=== PATIENT | female | born 1990 | race Caucasian/White ===

== ENCOUNTER 2017-02-22 21:50 | Emergency (ER) | payer OTHER ==
[2017-02-22] MEDS ORDERED: LORazepam 1 MG TAB ONE (22:51)
--- NOTE | 2017-02-22 22:51 | EDPHY ---
H & P Stated Complaint: anxiety/panic attacks since yesterday - Personal History LMP (Females 10-55): Now Current Tetanus/Diphtheria Vaccine: Yes Current Tetanus Diphtheria and Acellular Pertussis (TDAP): Yes Tetanus Vaccine Date: 2009 - Medical/Surgical History Hx Asthma: No Hx Chronic Respiratory Disease: No Hx Diabetes: No Hx Cardiac Disease: No Hx Renal Disease: No Hx Cirrhosis: No Hx Alcoholism: No Hx HIV/AIDS: No Hx Splenectomy or Spleen Trauma: No Other PMH: anxiety/panic attacks/depression. galbladder removed, migraines - Social History Smoking Status: Never smoked Time Seen by Provider: 02/22/17 22:24 HPI/ROS: Chief Complaint: Anxiety HPI: 26-year-old woman with a history of anxiety impression is presenting complaining of worsening anxiety and panic attacks. She denies feeling suicidal. Has been suicidal in the past but is carmen for safety. Has had increasing stressors at work. Patient does admit to drinking 1 sip of alcohol tonight. She does not feel unsafe. She is here with her boyfriend. No nausea or vomiting. No fevers or chills. Is not hallucinating. No ideas of grandeur. ROS: 10 point Review of Systems is negative except as noted in the HPI. PMH: Anxiety, depression, borderline personality Social History: No smoking, no alcohol, no recreational drug use Family History: non-contributory Physical Exam: Gen: Awake, Alert, No Distress HEENT: Nose: no rhinorrhea Eyes: PERRLA, EOMI Mouth: Moist mucosa Neck: Supple, no JVD Chest: nontender, lungs clear to auscultation Heart: S1, S2 normal, no murmur Abd: Soft, non-tender, no guarding Back: no CVA tenderness, no midline tenderness Ext: no edema, non-tender Skin: no rash Neuro: CN II-XII intact, Sensation grossly intact, Strength 5/5 in bilateral upper and lower extremities (Jose Maria Camara) Constitutional: Initial Vital Signs Temperature (C) 36.6 C 02/22/17 21:53 Heart Rate 75 02/22/17 21:53 Respiratory Rate 16 02/22/17 21:53 Blood Pressure 102/81 H 02/22/17 21:53 O2 Sat (%) 97 02/22/17 21:53 O2 Delivery Mode Room Air Allergies/Adverse Reactions: hydrocodone [Hydrocodone] Allergy (Verified 02/22/17 21:58) Vomiting silver [From Tegaderm AG Mesh] Allergy (Verified 06/30/12 11:34) Rash hydromorphone HCl [From Dilaudid] Adverse Reaction (Mild, Verified 07/02/12 10: 50) Anxiety Home Medications: Medication Instructions Recorded R[place] 02/22/17 Medical Decision Making ED Course/Re-evaluation: On further questioning patient is not feeling any better. She is not want to stay here but is not want to go home with parents or with her boyfriend. When asked why not she states that at home with parents she would be tempted to use a knife or take ibuprofen. Patient now not carmen for safety. She has been placed on a detainer pending mental health evaluation. [id number] patient signed out to Dr. Cornell pending mental health evaluation. ( Jose Maria Camara) I met with the patient and her mother at 7:30 a.m.. She is stable. No requests. Wondering when mental health leaf fat scraper will be back. We discussed that she is mid mental health evaluation. 8:25 a.m. patient has been re-evaluated by mental health. They feel she is safe to be treated as an outpatient. She is given mental health resources for follow-up. (Jatin Cornell) Differential Diagnosis: Apparent borderline personality with symptoms of anxiety. Presentation after fight with boyfriend over how much she has had to drink. No suicidal or homicidal ideation. (Jatin Cornell) - Data Points Laboratory Results: Laboratory Results 02/23/17 01:45 02/23/17 01:45 02/23/17 02/23/17 02/23/17 01:50 01:45 01:45 WBC 5.99 10^3/uL 10^3/uL (3.80-9.50) RBC 4.28 10^6/uL 10^6/uL (4.18-5.33) Hgb 14.4 g/dL g/dL (12.6-16.3) Hct 42.1 % % (38.0-47.0) MCV 98.4 fL fL (81.5-99.8) MCH 33.6 pg pg (27.9-34.1) MCHC 34.2 g/dL g/dL (32.4-36.7) RDW 13.1 % % (11.5-15.2) Plt Count 261 10^3/uL 10^3/uL (150-400) MPV 10.1 fL fL (8.7-11.7) Neut % (Auto) 26.0 % L % (39.3-74.2) Lymph % (Auto) 65.1 % H % (15.0-45.0) [place] % (Auto) 6.0 % % (4.5-13.0) Eos % (Auto) 1.8 % % (0.6-7.6) Baso % (Auto) 0.8 % % (0.3-1.7) Nucleat RBC Rel Count 0.0 % % (0.0-0.2) Absolute Neuts (auto) 1.55 10^3/uL L 10^3/uL (1.70-6.50) Absolute Lymphs (auto) 3.90 10^3/uL H 10^3/uL (1.00-3.00) Absolute Monos (auto) 0.36 10^3/uL 10^3/uL (0.30-0.80) Absolute Eos (auto) 0.11 10^3/uL 10^3/uL (0.03-0.40) Absolute Basos (auto) 0.05 10^3/uL 10^3/uL (0.02-0.10) Absolute Nucleated RBC 0.00 10^3/uL 10^3/uL (0-0.01) Immature Gran % 0.3 % % (0.0-1.1) Immature Gran # 0.02 10^3/uL 10^3/uL (0.00-0.10) Sodium 145 mEq/L H mEq/L (134-144) Potassium 4.5 mEq/L mEq/L (3.5-5.2) Chloride 111 mEq/L H mEq/L (97-110) Carbon Dioxide 23 mEq/l mEq/l (22-31) Anion Gap 11 mEq/L mEq/L (8-16) BUN 11 mg/dL mg/dL (7-23) Creatinine 0.8 mg/dL mg/dL (0.6-1.0) Estimated GFR > 60 Glucose 79 mg/dL mg/dL (70-100) Calcium 9.3 mg/dL mg/dL (8.5-10.4) Urine Opiates Screen NEGATIVE (NEGATIVE) Urine Barbiturates NEGATIVE (NEGATIVE) Ur Phencyclidine Scrn NEGATIVE (NEGATIVE) Ur Amphetamine Screen NEGATIVE (NEGATIVE) U Benzodiazepines Scrn NON-NEGATIVE H (NEGATIVE) Urine Cocaine Screen NEGATIVE (NEGATIVE) U Marijuana (THC) Screen NON-NEGATIVE H (NEGATIVE) Ethyl Alcohol 78 mg/dL H mg/dL (0-10) Medications Given: Lorazepam (Ativan) 1 mg PO EDNOW ONE Stop: 02/22/17 22:50 Last Admin: 02/23/17 06:19 Dose: 1 mg Lorazepam (Ativan) 1 mg PO EDNOW ONE Stop: 02/23/17 06:16 Last Admin: 02/23/17 06:23 Dose: 1 mg Departure - Departure Disposition: Home, Routine, Self-Care Clinical Impression: Anxiety Alcohol intoxication Qualifiers: Complication of substance-induced condition: with unspecified complication Qualified Code(s): F10.929 - Alcohol use, unspecified with intoxication, unspecified Condition: Good Instructions: Anxiety (ED) Additional Instructions: Return for any thoughts of harming herself or others. Follow up with mental health as they have recommended and given you Re sources. Referrals: NONE *PRIMARY CARE P,. [Primary Care Provider] - As per Instructions [facility] [Outside] - As per Instructions
[2017-02-22] MEDS: LORazepam 1 MG TAB PO ONE ×2 (22:55→22:56)
[2017-02-23 02:12] LABS: % IMMATURE GRANULYOCYTES 0.3 % (0.0-1.1); ABSOLUTE IMMATURE GRANULOCYTES 0.02 10^3/uL (0.00-0.10); ADD DIFF? NO; ADD MORPH? NO; ADD SCAN? NO; ATYPICAL LYMPHOCYTE FLAG 20 (0-99); FRAGMENT RBC FLAG 0 (0-99); HEMATOCRIT 42.1 % (38.0-47.0); HEMOGLOBIN 14.4 g/dL (12.6-16.3); LEFT SHIFT FLG 0 (0-99); LIPEMIA HEMOLYSIS FLAG 90 (0-99); MEAN CELL HEMOGLOBIN 33.6 pg (27.9-34.1); MEAN CELL HEMOGLOBIN CONCENTR. 34.2 g/dL (32.4-36.7); MEAN CELL VOLUME 98.4 fL (81.5-99.8); MEAN PLATELET VOLUME 10.1 fL (8.7-11.7); PLATELET CLUMPS FLAG 0 (0-99); PLATELET COUNT 261 10^3/uL (150-400); RED BLOOD CELL COUNT 4.28 10^6/uL (4.18-5.33); RED CELL DISTRIBUTION WIDTH 13.1 % (11.5-15.2)
[2017-02-23 02:19] LABS: ANION GAP 11 mEq/L (8-16); CALCIUM 9.3 mg/dL (8.5-10.4); CARBON DIOXIDE 23 mEq/l (22-31); CHLORIDE 111 mEq/L (97-110); CREATININE 0.8 mg/dL (0.6-1.0); ETHANOL SERUM 78 mg/dL (0-10); GLOMERULAR FILTRATION RATE > 60; GLUCOSE 79 mg/dL (70-100); POTASSIUM 4.5 mEq/L (3.5-5.2); SODIUM 145 mEq/L (134-144)
[2017-02-23 06:15] VITALS: TEMP 98.1
[2017-02-23] MEDS ORDERED: LORazepam 1 MG TAB PO ONE (06:15)
[2017-02-23] MEDS ORDERED: LORazepam 1 MG TAB ONE (06:16)
[2017-02-23] MEDS: LORazepam 1 MG TAB PO ONE (06:19)
[2017-02-23 08:25] VITALS: BP 116/62; PULSE 83; RESP 16; O2SAT 96
== END 2017-02-23 08:43 | disposition home or self-care (01) ==
DX: F41.9 Anxiety disorder, unspecified (principal); F10.929 Alcohol use, unspecified with intoxication, unspecified
CPT/HCPCS: 80305; G0480

== ENCOUNTER 2017-02-23 15:02 | Emergency (ER) | payer OTHER ==
[2017-02-23] MEDS ORDERED: LORazepam 1 MG TAB PO ONE (15:58)
[2017-02-23] MEDS ORDERED: LORazepam 1 MG TAB ONE (16:02)
--- NOTE | 2017-02-23 16:03 | EDPHY ---
H & P Stated Complaint: increasing anxiety, seen here yesterday Source: Patient, Family Exam Limitations: No limitations - Personal History LMP (Females 10-55): Now Current Tetanus/Diphtheria Vaccine: Yes Current Tetanus Diphtheria and Acellular Pertussis (TDAP): Yes Tetanus Vaccine Date: 2009 - Medical/Surgical History Hx Asthma: No Hx Chronic Respiratory Disease: No Hx Diabetes: No Hx Cardiac Disease: No Hx Renal Disease: No Hx Cirrhosis: No Hx Alcoholism: No Hx HIV/AIDS: No Hx Splenectomy or Spleen Trauma: No Other PMH: anxiety/panic attacks/depression. galbladder removed, migraines - Social History Smoking Status: Never smoked HPI/ROS: CHIEF COMPLAINT: Anxiety, depression suicidal ideation HISTORY OF PRESENT ILLNESS: Patient complains of increasing anxiety and depression. She has felt very anxious and depressed over the past 48 hours. This has been compounded by lack of care despite multiple attempts to do so. She says she became very anxious and feeling more depressed yesterday morning. This was exacerbated by a personal scenario. She was seen in this emergency department at that time was not suicidal. She was discharged home after treatment with instructions to follow up with psychiatrist. She made multiple attempts to do so today but has not been able to be seen. She was told by multiple providers that she would not be able to be seen for nearly 3 months. She then was able to make an appointment with Dr. Pisano on March 01 at 3pm. This made her even more anxious to the point that she has had thoughts of harming herself. She thought she would cut herself or hang herself. She says that she does not want to do so for that she has become so anxious that if she sent home she would consider doing so. No other associated complaints or modifying factors. REVIEW OF SYSTEMS: Ten systems reviewed and are negative unless otherwise noted in the HPI PAST MEDICAL HISTORY: Anxiety and depression. Previous M1 hold 2013 with inpatient care at [address] [place] [address] MEDICATIONS: Cymbalta 60 mg once daily COUNSELOR: Yajaira Nielson SOCIAL HISTORY: Nonsmoker. Occasional alcohol use. No street drugs other than occasional marijuana FAMILY HISTORY: Noncontributory EXAMINATION General Appearance: Alert, no distress anxious Head: normocephalic, atraumatic Eyes: Pupils equal and round, no conjunctival pallor or injection ENT, Mouth: Mucous membranes moist. Airway patent Neck: Normal inspection, supple, non-tender Respiratory: Lungs are clear to auscultation. No wheeze, rhonchi crash Cardiovascular: Regular rate and rhythm. No murmur Gastrointestinal: Abdomen is soft and nontender Back: non-tender, no bony abnormalities Neurological: GCS 15 A&O, nonfocal, normal gait Skin: Warm and dry, no rash Extremities: Nontender, no pedal edema Psychiatric: Depressed mood and affect. Anxious and tearful. Admits to suicidal ideation with thoughts of cutting or hanging. Denies intent to do so DIFFERENTIAL DIAGNOSES: Including but not limited to suicidal ideation, anxiety, depression, bipolar, schizophrenia, schizoaffective MDM: 4:00 p.m. Extreme anxiety with thoughts of self-harm that include cutting or hanging herself she does not perceive care at this time. She has made multiple attempts to seek care and has not been able to secure an appointment till next week. This is made her even more anxious and want to hurt herself. I have placed her on an M1 hold at 4:00 p.m.. 4:34 p.m. I discussed the case with Dr. Boyle. At this time he will assume care the patient. She is awaiting medical clearance and evaluation at this time. She remains calm and cooperative although anxious. Please see the note of Dr. Boyle for further details and disposition. SUPERVISION: Patient was evaluated in conjunction with the supervising physician. Please see their note for details. (Chilango Barrera) Constitutional: Initial Vital Signs Temperature (C) 36.7 C 02/23/17 15:22 Heart Rate 79 02/23/17 15:22 Respiratory Rate 22 H 02/23/17 15:22 Blood Pressure 112/67 02/23/17 15:22 O2 Sat (%) 97 02/23/17 15:22 O2 Delivery Mode Room Air Allergies/Adverse Reactions: hydrocodone [Hydrocodone] Allergy (Verified 02/22/17 21:58) Vomiting silver [From Tegaderm AG Mesh] Allergy (Verified 06/30/12 11:34) Rash hydromorphone HCl [From Dilaudid] Adverse Reaction (Mild, Verified 07/02/12 10: 50) Anxiety Home Medications: Medication Instructions Recorded Cymbalta 02/22/17 Medical Decision Making ED Course/Re-evaluation: Patient has been evaluated by Mental Health. They have assisted her in obtaining outpatient follow-up. They do not think she meets inpatient criteria. I agree. She is requesting Ativan to go. She contracts for safety. (Juarez Boyle) Differential Diagnosis: Partial list of the Differential diagnosis considered include but were not limited to; depression, suicidality, bipolar, anxiety, insomnia and although unlikely based on the history and physical exam, I also considered infection, head injury, seizure. (Juarez Boyle) - Data Points Laboratory Results: Laboratory Results 02/23/17 17:35 02/23/17 17:35 02/23/17 02/23/17 02/23/17 17:35 17:35 17:35 WBC RBC Hgb Hct MCV MCH MCHC RDW Plt Count MPV Neut % (Auto) Lymph % (Auto) [place] % (Auto) Eos % (Auto) Baso % (Auto) Nucleat RBC Rel Count Absolute Neuts (auto) Absolute Lymphs (auto) Absolute Monos (auto) Absolute Eos (auto) Absolute Basos (auto) Absolute Nucleated RBC Immature Gran % Immature Gran # Sodium 138 mEq/L mEq/L (134-144) Potassium 3.9 mEq/L mEq/L (3.5-5.2) Chloride 107 mEq/L mEq/L (97-110) Carbon Dioxide 16 mEq/l L D mEq/l (22-31) Anion Gap 15 mEq/L mEq/L (8-16) BUN 10 mg/dL mg/dL (7-23) Creatinine 0.6 mg/dL mg/dL (0.6-1.0) Estimated GFR > 60 Glucose 74 mg/dL mg/dL (70-100) Calcium 9.3 mg/dL mg/dL (8.5-10.4) Beta HCG, Qual NEGATIVE Salicylates < 1.0 mg/dL L mg/dL (2.0-20.0) Urine Opiates Screen NEGATIVE (NEGATIVE) Acetaminophen < 10 mcg/mL L mcg/mL (10-30) Urine Barbiturates NEGATIVE (NEGATIVE) Ur Phencyclidine Scrn NEGATIVE (NEGATIVE) Ur Amphetamine Screen NEGATIVE (NEGATIVE) U Benzodiazepines Scrn NON-NEGATIVE H (NEGATIVE) Urine Cocaine Screen NEGATIVE (NEGATIVE) U Marijuana (THC) Screen NON-NEGATIVE H (NEGATIVE) Ethyl Alcohol < 10 mg/dL mg/dL (0-10) 08/16/17 17:35 WBC 7.40 10^3/uL 10^3/uL (3.80-9.50) RBC 4.23 10^6/uL 10^6/uL (4.18-5.33) Hgb 14.3 g/dL g/dL (12.6-16.3) Hct 41.3 % % (38.0-47.0) MCV 97.6 fL fL (81.5-99.8) MCH 33.8 pg pg (27.9-34.1) MCHC 34.6 g/dL g/dL (32.4-36.7) RDW 12.9 % % (11.5-15.2) Plt Count 247 10^3/uL 10^3/uL (150-400) MPV 10.1 fL fL (8.7-11.7) Neut % (Auto) 47.1 % % (39.3-74.2) Lymph % (Auto) 45.5 % H % (15.0-45.0) [place] % (Auto) 5.8 % % (4.5-13.0) Eos % (Auto) 0.8 % % (0.6-7.6) Baso % (Auto) 0.5 % % (0.3-1.7) Nucleat RBC Rel Count 0.0 % % (0.0-0.2) Absolute Neuts (auto) 3.48 10^3/uL 10^3/uL (1.70-6.50) Absolute Lymphs (auto) 3.37 10^3/uL H 10^3/uL (1.00-3.00) Absolute Monos (auto) 0.43 10^3/uL 10^3/uL (0.30-0.80) Absolute Eos (auto) 0.06 10^3/uL 10^3/uL (0.03-0.40) Absolute Basos (auto) 0.04 10^3/uL 10^3/uL (0.02-0.10) Absolute Nucleated RBC 0.00 10^3/uL 10^3/uL (0-0.01) Immature Gran % 0.3 % % (0.0-1.1) Immature Gran # 0.02 10^3/uL 10^3/uL (0.00-0.10) Sodium Potassium Chloride Carbon Dioxide Anion Gap BUN Creatinine Estimated GFR Glucose Calcium Beta HCG, Qual Salicylates Urine Opiates Screen Acetaminophen Urine Barbiturates Ur Phencyclidine Scrn Ur Amphetamine Screen U Benzodiazepines Scrn Urine Cocaine Screen U Marijuana (THC) Screen Ethyl Alcohol Medications Given: Lorazepam (Ativan) 1 mg PO EDNOW ONE Stop: 02/23/17 15:59 Last Admin: 02/23/17 16:04 Dose: 1 mg Departure - Departure Disposition: [facility] Clinical Impression: Anxiety Depression Qualifiers: Depression Type: unspecified Qualified Code(s): F32.9 - Major depressive disorder, single episode, unspecified Condition: Fair Instructions: Depression (ED), Anxiety (ED) Referrals: [facility] [Clinic] - As per Instructions
[2017-02-23 18:03] LABS: % IMMATURE GRANULYOCYTES 0.3 % (0.0-1.1); ABSOLUTE IMMATURE GRANULOCYTES 0.02 10^3/uL (0.00-0.10); ADD DIFF? NO; ADD MORPH? NO; ADD SCAN? NO; ATYPICAL LYMPHOCYTE FLAG 10 (0-99); FRAGMENT RBC FLAG 0 (0-99); HEMATOCRIT 41.3 % (38.0-47.0); HEMOGLOBIN 14.3 g/dL (12.6-16.3); LEFT SHIFT FLG 0 (0-99); LIPEMIA HEMOLYSIS FLAG 90 (0-99); MEAN CELL HEMOGLOBIN 33.8 pg (27.9-34.1); MEAN CELL HEMOGLOBIN CONCENTR. 34.6 g/dL (32.4-36.7); MEAN CELL VOLUME 97.6 fL (81.5-99.8); MEAN PLATELET VOLUME 10.1 fL (8.7-11.7); PLATELET CLUMPS FLAG 0 (0-99); PLATELET COUNT 247 10^3/uL (150-400); RED BLOOD CELL COUNT 4.23 10^6/uL (4.18-5.33); RED CELL DISTRIBUTION WIDTH 12.9 % (11.5-15.2)
[2017-02-23 18:37] LABS: ANION GAP 15 mEq/L (8-16); CALCIUM 9.3 mg/dL (8.5-10.4); CARBON DIOXIDE 16 mEq/l (22-31); CHLORIDE 107 mEq/L (97-110); CREATININE 0.6 mg/dL (0.6-1.0); ETHANOL SERUM < 10 mg/dL (0-10); GLOMERULAR FILTRATION RATE > 60; GLUCOSE 74 mg/dL (70-100); POTASSIUM 3.9 mEq/L (3.5-5.2); SALICYLATE < 1.0 mg/dL (2.0-20.0); SODIUM 138 mEq/L (134-144)
[2017-02-23] MEDS ORDERED: LORAZEPAM 1 MG PREPACK#4 BTL TAKEHOME ONE ×2 (21:01→21:11)
[2017-02-23 21:20] VITALS: BP 110/77; PULSE 65; RESP 16; TEMP 98.2; O2SAT 94
== END 2017-02-23 21:18 | disposition short-term general hospital (02) ==
DX: F41.8 Other specified anxiety disorders (principal)
CPT/HCPCS: 80305; G0480

== ENCOUNTER 2017-05-05 12:47 | Inpatient (IN) | payer OTHER ==
[2017-05-05] MEDS ORDERED: ONDANSETRON 4 MG/2 ML VIAL IVP ONE (14:06)
[2017-05-05] MEDS ORDERED: NS 1,000 ML IV ONE ×2 (14:06→16:12)
[2017-05-05] MEDS ORDERED: LIDOCAINE 1% 75 MG in NS 100 ML IV ONE (14:08)
[2017-05-05 14:16] LABS: % IMMATURE GRANULYOCYTES 0.5 % (0.0-1.1); ABSOLUTE IMMATURE GRANULOCYTES 0.09 10^3/uL (0.00-0.10); ADD DIFF? NO; ADD MORPH? NO; ADD SCAN? NO; ATYPICAL LYMPHOCYTE FLAG 0 (0-99); FRAGMENT RBC FLAG 0 (0-99); HEMATOCRIT 36.8 % (38.0-47.0); LEFT SHIFT FLG 0 (0-99); LIPEMIA HEMOLYSIS FLAG 90 (0-99); MEAN CELL HEMOGLOBIN 33.9 pg (27.9-34.1); MEAN CELL HEMOGLOBIN CONCENTR. 35.3 g/dL (32.4-36.7); MEAN CELL VOLUME 96.1 fL (81.5-99.8); MEAN PLATELET VOLUME 9.4 fL (8.7-11.7); PLATELET CLUMPS FLAG 0 (0-99); PLATELET COUNT 200 10^3/uL (150-400); RED BLOOD CELL COUNT 3.83 10^6/uL (4.18-5.33)
--- NOTE | 2017-05-05 14:20 | EDPHY ---
H & P Stated Complaint: abdominal pain x 2 days, body aches Time Seen by Provider: 05/05/17 13:59 HPI/ROS: CHIEF COMPLAINT: Right lower quadrant pain HISTORY OF PRESENT ILLNESS: Patient is a 27-year-old female who comes to the emergency department complaining of right lower quadrant pain for the last 48 hours. It is becoming progressively more painful. It hurts her to go over bumps in the car. She vomited on Tuesday but has not since. She has had diarrhea. She has a fever here in the emergency department. She last menstrual period was 1 week ago. She has a history of cholecystectomy. She does not take any medications. REVIEW OF SYSTEMS: Constitutional: denies: chills, fever, recent illness, recent injury EENTM: denies: blurred vision, double vision, nose congestion Respiratory: denies: cough, shortness of breath Cardiac: denies: chest pain, irregular heart rate, lightheadedness, palpitations Gastrointestinal/Abdominal: See HPI Genitourinary: denies: dysuria, frequency, hematuria, pain Musculoskeletal: denies: joint pain, muscle pain Skin: denies: lesions, rash, jaundice, bruising Neurological: denies: headache, numbness, paresthesia, tingling, dizziness, weakness Hematologic/Lymphatic: denies: blood clots, easy bleeding, easy bruising Immunologic/allergic: denies: HIV/AIDS, transplant EXAM: GENERAL: Well-appearing, well-nourished and in no acute distress. HEAD: Atraumatic, normocephalic. EYES: Pupils equal round and reactive to light, extraocular movements intact, sclera anicteric, conjunctiva are normal. ENT: TMs normal, nares patent, oropharynx clear without exudates. Moist mucous membranes. NECK: Normal range of motion, supple without lymphadenopathy or JVD. LUNGS: Breath sounds clear to auscultation bilaterally and equal. No wheezes rales or rhonchi. HEART: Regular rate and rhythm without murmurs, rubs or gallops. ABDOMEN: Right lower quadrant tenderness BACK: No CVA tenderness, no spinal tenderness, step-offs or deformities EXTREMITIES: Normal range of motion, no pitting or edema. No clubbing or cyanosis. NEUROLOGICAL: Cranial nerves II through XII grossly intact. Normal speech, normal gait. 5/5 strength, normal movement in all extremities, normal sensation PSYCH: Normal mood, normal affect. SKIN: Warm, dry, normal turgor, no visible rashes or lesions. Source: Patient Exam Limitations: No limitations - Personal History LMP (Females 10-55): 8-14 Days Ago Current Tetanus Diphtheria and Acellular Pertussis (TDAP): Yes Tetanus Vaccine Date: 2009 - Medical/Surgical History Hx Asthma: No Hx Chronic Respiratory Disease: No Hx Diabetes: No Hx Cardiac Disease: No Hx Renal Disease: No Hx Cirrhosis: No Hx Alcoholism: No Hx HIV/AIDS: No Hx Splenectomy or Spleen Trauma: No Other PMH: anxiety/panic attacks/depression. galbladder removed, migraines - Family History Significant Family History: No pertinent family hx - Social History Smoking Status: Never smoked Alcohol Use: Sober Drug Use: None Constitutional: Initial Vital Signs Temperature (C) 38.6 C H 05/05/17 13:16 Heart Rate 113 H 05/05/17 13:16 Respiratory Rate 16 05/05/17 13:16 Blood Pressure 117/41 L 05/05/17 13:16 O2 Sat (%) 97 05/05/17 13:16 O2 Delivery Mode Room Air Allergies/Adverse Reactions: hydromorphone HCl [From Dilaudid] Allergy (Mild, Verified 05/05/17 17:23) Anxiety hydrocodone [Hydrocodone] Allergy (Verified 02/22/17 21:58) Vomiting silver [From Tegaderm AG Mesh] Allergy (Verified 06/30/12 11:34) Rash Home Medications: Medication Instructions Recorded Effexor 05/05/17 GABAPENTIN 05/05/17 Medical Decision Making - Diagnostics Imaging Results: Imaging Impressions Abdomen CT 05/05/17 14:07 Impression: 1. Enlarged hyperemic appendix with extensive periappendiceal inflammation and trace periappendiceal air, suggesting acute perforated appendicitis with reactive inflammation of the adjacent ileum, with no visible abscess. This could less likely be related to reactive inflammation of the appendix from small bowel inflammation (such as Crohn's disease). 2. Mild prominence of the right renal pelvis and ureter, likely secondary to extensive pelvic inflammation. 3. Additional findings as above. Findings discussed with Dr. Juarez Boyle on 05/05/2017 at 1605 hours. Imaging: Discussed imaging studies w/ returning officer Radiologist ED Course/Re-evaluation: 4:10 p.m. I discussed the case with Dr. Parry who will evaluate for operation. He requested ertapenem and another L of fluids. Differential Diagnosis: Partial list of the Differential diagnosis considered include but were not limited to; appendicitis, ovarian cyst and although unlikely based on the history and physical exam, I also considered , obstruction, volvulus, PID. - Data Points Laboratory Results: Laboratory Results 05/05/17 14:08 05/05/17 14:08 05/05/17 05/05/17 05/05/17 16:00 14:08 14:08 WBC RBC Hgb Hct MCV MCH MCHC RDW Plt Count MPV Neut % (Auto) Lymph % (Auto) [place] % (Auto) Eos % (Auto) Baso % (Auto) Nucleat RBC Rel Count Absolute Neuts (auto) Absolute Lymphs (auto) Absolute Monos (auto) Absolute Eos (auto) Absolute Basos (auto) Absolute Nucleated RBC Immature Gran % Immature Gran # Sodium 133 mEq/L L mEq/L (134-144) Potassium 4.9 mEq/L mEq/L (3.5-5.2) Chloride 98 mEq/L mEq/L (97-110) Carbon Dioxide 24 mEq/l mEq/l (22-31) Anion Gap 11 mEq/L mEq/L (8-16) BUN 10 mg/dL mg/dL (7-23) Creatinine 0.7 mg/dL mg/dL (0.6-1.0) Estimated GFR > 60 Glucose 92 mg/dL mg/dL (70-100) Calcium 9.0 mg/dL mg/dL (8.5-10.4) Total Bilirubin 0.9 mg/dL mg/dL (0.1-1.4) Conjugated Bilirubin 0.2 mg/dL mg/dL (0.0-0.5) Unconjugated Bilirubin 0.7 mg/dL mg/dL (0.0-1.1) AST 28 IU/L IU/L (14-46) ALT 37 IU/L IU/L (9-52) Alkaline Phosphatase 100 IU/L IU/L (38-126) Total Protein 7.3 g/dL g/dL (6.3-8.2) Albumin 3.6 g/dL g/dL (3.5-5.0) Lipase 43 IU/L IU/L (23-300) Beta HCG, Qual NEGATIVE Urine Color PALE YELLOW Urine Appearance HAZY Urine pH 5.0 (5.0-7.5) Ur Specific [place] 1.030 (1.002-1.030) Urine Protein NEGATIVE (NEGATIVE) Urine Ketones TRACE H (NEGATIVE) Urine Blood 2+ H (NEGATIVE) Urine Nitrate NEGATIVE (NEGATIVE) Urine Bilirubin NEGATIVE (NEGATIVE) Urine Urobilinogen NEGATIVE EU EU (0.2-1.0) Ur Leukocyte Esterase NEGATIVE (NEGATIVE) Urine RBC 1-3 /hpf /hpf (0-3) Urine WBC 1-3 /hpf /hpf (0-3) Ur Epithelial Cells 1+ /lpf /lpf (NONE-1+) Urine Mucus TRACE /lpf /lpf (NONE-1+) Urine Glucose NEGATIVE (NEGATIVE) 05/05/17 14:08 WBC 16.45 10^3/uL H 10^3/uL (3.80-9.50) RBC 3.83 10^6/uL L 10^6/uL (4.18-5.33) Hgb 13.0 g/dL g/dL (12.6-16.3) Hct 36.8 % L % (38.0-47.0) MCV 96.1 fL fL (81.5-99.8) MCH 33.9 pg pg (27.9-34.1) MCHC 35.3 g/dL g/dL (32.4-36.7) RDW 13.0 % % (11.5-15.2) Plt Count 200 10^3/uL 10^3/uL (150-400) MPV 9.4 fL fL (8.7-11.7) Neut % (Auto) 85.5 % H % (39.3-74.2) Lymph % (Auto) 8.1 % L % (15.0-45.0) [place] % (Auto) 5.5 % % (4.5-13.0) Eos % (Auto) 0.1 % L % (0.6-7.6) Baso % (Auto) 0.3 % % (0.3-1.7) Nucleat RBC Rel Count 0.0 % % (0.0-0.2) Absolute Neuts (auto) 14.05 10^3/uL H 10^3/uL (1.70-6.50) Absolute Lymphs (auto) 1.33 10^3/uL 10^3/uL (1.00-3.00) Absolute Monos (auto) 0.91 10^3/uL H 10^3/uL (0.30-0.80) Absolute Eos (auto) 0.02 10^3/uL L 10^3/uL (0.03-0.40) Absolute Basos (auto) 0.05 10^3/uL 10^3/uL (0.02-0.10) Absolute Nucleated RBC 0.00 10^3/uL 10^3/uL (0-0.01) Immature Gran % 0.5 % % (0.0-1.1) Immature Gran # 0.09 10^3/uL 10^3/uL (0.00-0.10) Sodium Potassium Chloride Carbon Dioxide Anion Gap BUN Creatinine Estimated GFR Glucose Calcium Total Bilirubin Conjugated Bilirubin Unconjugated Bilirubin AST ALT Alkaline Phosphatase Total Protein Albumin Lipase Beta HCG, Qual Urine Color Urine Appearance Urine pH Ur Specific [place] Urine Protein Urine Ketones Urine Blood Urine Nitrate Urine Bilirubin Urine Urobilinogen Ur Leukocyte Esterase Urine RBC Urine WBC Ur Epithelial Cells Urine Mucus Urine Glucose Medications Given: Discontinued Medications Sodium Chloride (Ns) 1,000 mls @ 0 mls/hr IV EDNOW ONE; Wide Open PRN Reason: Protocol Stop: 05/05/17 14:07 Last Admin: 05/05/17 14:48 Dose: 1,000 mls Lidocaine HCl 75 mg/ Sodium (Chloride) 107.5 mls @ 600 mls/hr IV EDNOW ONE Stop: 05/05/17 14:18 Last Admin: 05/05/17 15:13 Dose: 107.5 mls Sodium Chloride (Ns) 1,000 mls @ 0 mls/hr IV EDNOW ONE; Wide Open PRN Reason: Protocol Stop: 05/05/17 16:13 Last Admin: 05/05/17 16:43 Dose: 1,000 mls Ertapenem 1 gm/ Sodium (Chloride) 100 mls @ 200 mls/hr IV EDNOW ONE PRN Reason: Protocol Stop: 05/05/17 16:40 Last Admin: 05/05/17 16:44 Dose: 100 mls Ketorolac Tromethamine (Toradol) 30 mg IVP EDNOW ONE Stop: 05/05/17 15:35 Last Admin: 05/05/17 15:40 Dose: 30 mg Morphine Sulfate (Morphine) 4 mg IVP EDNOW ONE Stop: 05/05/17 16:23 Last Admin: 05/05/17 16:54 Dose: 4 mg Ondansetron HCl (Zofran) 4 mg IVP EDNOW ONE Stop: 05/05/17 14:07 Last Admin: 05/05/17 14:49 Dose: 4 mg Departure - Departure Disposition: To OP Cath/Surgery Clinical Impression: Appendicitis Qualifiers: Appendicitis type: acute appendicitis Acute appendicitis type: with localized peritonitis Qualified Code(s): K35.3 - Acute appendicitis with localized peritonitis Condition: Fair
[2017-05-05 14:33] LABS: ALANINE AMINOTRANSFERASE 37 IU/L (9-52); ALBUMIN 3.6 g/dL (3.5-5.0); ALKALINE PHOSPHATASE 100 IU/L (38-126); ANION GAP 11 mEq/L (8-16); ASPARTATE AMINOTRANSFERASE 28 IU/L (14-46); BILIRUBIN,TOTAL 0.9 mg/dL (0.1-1.4); BILIRUBIN-CONJUGATED 0.2 mg/dL (0.0-0.5); BILIRUBIN-UNCONJUGATED 0.7 mg/dL (0.0-1.1); CARBON DIOXIDE 24 mEq/l (22-31); CHLORIDE 98 mEq/L (97-110); CREATININE 0.7 mg/dL (0.6-1.0); GLOMERULAR FILTRATION RATE > 60; GLUCOSE 92 mg/dL (70-100); POTASSIUM 4.9 mEq/L (3.5-5.2); SODIUM 133 mEq/L (134-144); TOTAL PROTEIN 7.3 g/dL (6.3-8.2)
[2017-05-05] MEDS ORDERED: IOPAMIDOL (ISOVUE-300) 100 ML BTL ONE (15:12)
[2017-05-05] MEDS ORDERED: KETOROLAC 30 MG/1 ML SDV IVP ONE (15:34)
[2017-05-05] MEDS ORDERED: ERTAPENEM 1 GM in NS 100 ML IV ONE (16:11)
[2017-05-05 16:13] LABS: COLOR PALE YELLOW; LEUKOCYTE ESTERASE,URINE NEGATIVE (NEGATIVE); NITRITE,URINE NEGATIVE (NEGATIVE)
[2017-05-05 16:25] LABS: MUCUS TRACE /lpf (NONE-1+)
[2017-05-05] MEDS ORDERED: MIDAZOLAM 2 MG/2 ML VIAL IVP ONE (17:18)
--- NOTE | 2017-05-05 17:20 | PDANEPAE ---
ANE History of Present Illness acute appendicitis s/f lap appy ANE Past Medical History - Pulmonary History Hx Oxygen in Use at Home: No - Endocrine History Hx Diabetes: No - Neurological & Psychiatric Hx Neurological / Psychiatric History Comment: anxiety/depression/past ETOH ANE Review of Systems Review of Systems: - Exercise capacity Exercise capacity: >=4 METS ANE Patient History - Allergies Allergies/Adverse Reactions: hydrocodone [Hydrocodone] Allergy (Verified 02/22/17 21:58) Vomiting silver [From Tegaderm AG Mesh] Allergy (Verified 06/30/12 11:34) Rash hydromorphone HCl [From Dilaudid] Adverse Reaction (Mild, Verified 07/02/12 10: 50) Anxiety - Home Medications Home medications: home medication list seen and reviewed Home Medications: Effexor 05/05/17 [Last Taken Unknown] GABAPENTIN 05/05/17 [Last Taken Unknown] - NPO status NPO Since - Liquids (Date): 05/05/17 (emergent per surgeon) NPO Since - Liquids (Time): 13:00 NPO Since - Solids (Date): 05/04/17 - Anes Hx Anes Hx: no prior problems - Smoking Hx Smoking Status: Never smoked - Alcohol Use Alcohol Use: Sober - Family Anes Hx Family Anes Hx: none ANE Labs/Vital Signs - Labs Result Diagrams: 05/05/17 14:08 05/05/17 14:08 - Vital Signs Blood Pressure: 110/69 Heart Rate: 106 Respiratory Rate: 16 O2 Sat (%): 93 Height: 170.18 cm Weight: 65.771 kg ANE Physical Exam - Airway Mallampati Score: Class 1 Mouth exam: normal dental/mouth exam - Pulmonary Pulmonary: no respiratory distress - Cardiovascular Cardiovascular: regular rate and rhythym - ASA Status ASA Status: I, E ANE Anesthesia Plan Anesthesia Plan: general endotracheal anesthesia (R/B/A explained and agrees to proceed)
[2017-05-05] MEDS ORDERED: HEPARIN 5,000 UNIT/0.5 ML SYR ONE (17:28)
[2017-05-05] MEDS ORDERED: ceFAZolin 1 GM/5 ML SYR ONE (17:29)
[2017-05-05] MEDS ORDERED: PROPOFOL/EMULSION 500 MG/50 ML BOTTLE IV ONE (17:37)
[2017-05-05] MEDS ORDERED: fentaNYL 100 MCG/2 ML INJ ONE ×2 (17:37→19:18)
[2017-05-05] MEDS ORDERED: LIDOCAINE 2% 100 MG/5 ML SYR ONE (17:37)
[2017-05-05] MEDS ORDERED: ONDANSETRON 4 MG/2 ML VIAL ONE (17:38)
[2017-05-05] MEDS ORDERED: ROCURONIUM 50 MG/5 ML VIAL ONE (17:38)
[2017-05-05] MEDS ORDERED: LIDOCAINE HCL 160 MG/4 ML LTA KIT TP ONE (17:38)
[2017-05-05] MEDS ORDERED: DEXAMETHASONE 4 MG/ML VIAL ONE ×2 (17:38)
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
[2017-05-05] MEDS ORDERED: ONDANSETRON 4 MG/2 ML VIAL IVP PRN ×2 (18:39→19:36)
[2017-05-05] MEDS ORDERED: METOCLOPRAMIDE 10 MG/2 ML VIAL IVP PRN (18:39)
[2017-05-05] MEDS ORDERED: PROMETHAZINE HCL 25 MG/ML INJ IVP PRN (18:39)
[2017-05-05] MEDS ORDERED: ACETAMINOPHEN 500 MG TAB PO PRN (18:39)
[2017-05-05] MEDS ORDERED: LR 500 ML IV PRN (18:39)
[2017-05-05] MEDS ORDERED: DEXAMETHASONE 4 MG/ML VIAL IVP PRN (18:39)
[2017-05-05] MEDS ORDERED: MEPERIDINE 25 MG/ML SYR IVP PRN (18:39)
[2017-05-05] MEDS ORDERED: OXYCODONE/APAP 5/325 TAB PO PRN (18:39)
[2017-05-05] MEDS ORDERED: LABETALOL HCL 5 MG/ML 20 ML MDV IVP PRN (18:39)
[2017-05-05] MEDS ORDERED: NALOXONE HCL 0.4 MG/ML INJ IVP PRN (18:39)
[2017-05-05] MEDS ORDERED: ALBUTEROL 3 ML DEYVIAL IH PRN (18:39)
[2017-05-05] MEDS ORDERED: SUGAMMADEX SODIUM 200 MG/2 ML VIAL IVP ONE (18:43)
[2017-05-05] MEDS: fentaNYL 100 MCG/2 ML INJ IVP PRN ×3 (19:19→19:53)
--- NOTE | 2017-05-05 19:20 | POSTANESTH ---
Post Anesthetic Evaluation Cardiovascular Status: Normal, Stable Respiratory Status: Normal, Stable Level of Consciousness/Mental Status: Can Participate in Eval Pain Control: Adequate, Prn Tx Ordered Nausea/Vomiting Control: Adequate, Prn Tx Ordered Complications Possibly Related to Anesthesia: None Noted
--- NOTE | 2017-05-05 19:47 | POSTOPPROG ---
Post Op Note Date of Operation: 05/05/17 Surgeon: Misha Parry Anesthesia: GET(General Endotracheal) Pre-op Diagnosis: acute probably ruptured appendicitis Post-op Diagnosis: acute appendicitis w/ perforation, Meckel's diverticulum, Incisional hernia Indication: acute probably ruptured appendicitis Procedure: Lap appendectomy, Meckel's diverteculectomy, repair incisional hernia Findings: acute appendicitis w/ perforation, Meckle's diverticulum,Incisional hernia Inf/Abcess present in the surg proc area at time of surgery?: Yes Depth: Organ Space EBL: Minimal Total fluids administered: 1200 Complications: none
--- NOTE | 2017-05-05 20:25 | GOP ---
[f rep st] OPERATIVE REPORT DATE OF OPERATION: 05/05/2017 SURGEON: Misha Parry MD ANESTHESIA: General endotracheal. PREOPERATIVE DIAGNOSIS: Acute probably ruptured appendicitis. POSTOPERATIVE DIAGNOSIS: 1. Acute appendicitis with perforation. 2. Meckel's diverticulum. 3. Incisional hernia (at site of prior cholecystectomy umbilical incision). PROCEDURE PERFORMED: 1. Laparoscopic appendectomy with placement of MOHINDER drain. 2. Meckel's diverticulectomy. 3. Repair of incisional hernia. There was purulent drainage from the appendix. FINDINGS: 1. Acute appendicitis with perforation. 2. Meckel's diverticulum. 3. Incisional hernia (at site of prior cholecystectomy umbilical incision). ESTIMATED BLOOD LOSS: Minimal. INDICATIONS: Acute probably ruptured appendicitis. DESCRIPTION OF PROCEDURE: The patient is placed on the operating table in supine position. After in duction of adequate general endotracheal anesthesia, the abdomen was carefully prepped and draped. A surgical time-out was carried out. It was agreed to by all members of the operative team. Note is made the patient was asked to empty her bladder prior to the surgery. A curvilinear incision was planned through her prior umbilical curvilinear incision. A transverse in cision is planned in the suprapubic region as well as in the left lower quadrant. The umbilical fold prior curvilinear incision is now incised. Dissection was continued with the Bovie electrocautery a nd blunt dissection. This exposes the anterior rectus sheath bilaterally. Anterior rectus sheath is not elevated because at this point, I realize there is a fat containing hernia which is easily large enough for port placement. The herniated fat was carefully trimmed with cautery. A pursestring and #0 PDS were placed. The fascial defect was carefully stretched. The peritoneum was entered. An 11 -12 mm disposable Arthur trocar was positioned. Intra-abdominal insufflation was carried out to 15 m m. The other 2 incisions are now made and 5 mm ports were placed through both. The patient is placed in a 5 degree rotation to the left and a 15 degree Trendelenburg position. A c areful and tedious dissection was carried out to carefully rotate the adherent omentum off the append ix to separate the appendix from the terminal ileum. Once this is done, Harmonic Scalpel used to div socorro the mesoappendix. Careful dissection was carried out to free the appendix down to its connection to the cecum. The appendiceal base was divided on the cecum with 1 application of Endo-UVALDO powered vascular staple. It was removed in an EndoCatch bag. There was a small amount of fluid that goes to the pelvis. A gross irrigation was carried out to remove gross purulence. A total of 2 L of irriga tion with heparin and Ancef is used. The small bowel was run for a distance of approximately 2 feet. Meckel's diverticulum which is great er than 2 x 2 x 2 cm is identified. This is elevated and resected in a transverse manner using anoth er Endo-UVALDO stapler load. The specimen was removed. Both specimens were sent to the lab in formalin . A 10 flat MOHINDER drain is directed into the pelvis and let out through the suprapubic site. A simple tzrc-ed-gusb suture is placed in the fascial defect. The pursestring was now tied and the s socorro-to-side suture is tied. This resulted in excellent closure. The incision was closed with invert ed simple sutures of 4-0 Vicryl at all sites, after the umbilical site has been well irrigated. Mast isol and Steri-Strips were placed. Note, the drain has been secured with a vertical mattress suture #3-0 silk. A sterile dressing was placed around it. The patient is transferred to recovery in [facility] and satisfactory condition. FLUIDS ADMINISTERED: 1200 cc. COMPLICATIONS: None. DRAINS PLACED: A 10 flat MOHINDER drain directly in the pelvis. /[id number]/MODL
[2017-05-05] MEDS: ACETAMINOPHEN 500 MG TAB PO SCH (21:02)
[2017-05-05] MEDS: LR 1,000 ML IV SCH (21:04)
[2017-05-05] MEDS: HEPARIN 5,000 UNIT/0.5 ML SYR SC SCH (22:06)
[2017-05-05] MEDS: KETOROLAC 30 MG/1 ML SDV IVP SCH (23:26)
[2017-05-06] MEDS ORDERED: DIAZEPAM 5 MG TAB PO ONE (00:45)
[2017-05-06] MEDS: ACETAMINOPHEN 500 MG TAB PO SCH ×3 (03:52→20:06)
[2017-05-06] MEDS: KETOROLAC 30 MG/1 ML SDV IVP SCH ×4 (05:03→23:49)
[2017-05-06] MEDS: LR 1,000 ML IV SCH ×3 (05:03→23:49)
[2017-05-06] MEDS: HEPARIN 5,000 UNIT/0.5 ML SYR SC SCH ×3 (05:03→22:15)
[2017-05-06 05:43] LABS: % IMMATURE GRANULYOCYTES 0.3 % (0.0-1.1); ABSOLUTE IMMATURE GRANULOCYTES 0.03 10^3/uL (0.00-0.10); ADD DIFF? NO; ADD MORPH? NO; ADD SCAN? NO; ATYPICAL LYMPHOCYTE FLAG 0 (0-99); FRAGMENT RBC FLAG 0 (0-99); HEMATOCRIT 33.7 % (38.0-47.0); HEMOGLOBIN 11.3 g/dL (12.6-16.3); LEFT SHIFT FLG 60 (0-99); LIPEMIA HEMOLYSIS FLAG 80 (0-99); MEAN CELL HEMOGLOBIN CONCENTR. 33.5 g/dL (32.4-36.7); MEAN CELL VOLUME 98.5 fL (81.5-99.8); MEAN PLATELET VOLUME 9.8 fL (8.7-11.7); PLATELET CLUMPS FLAG 10 (0-99); PLATELET COUNT 170 10^3/uL (150-400); RED BLOOD CELL COUNT 3.42 10^6/uL (4.18-5.33)
[2017-05-06 06:00] LABS: ANION GAP 10 mEq/L (8-16); CALCIUM 8.3 mg/dL (8.5-10.4); CARBON DIOXIDE 23 mEq/l (22-31); CHLORIDE 107 mEq/L (97-110); CREATININE 0.6 mg/dL (0.6-1.0); GLOMERULAR FILTRATION RATE > 60; GLUCOSE 160 mg/dL (70-100); POTASSIUM 4.9 mEq/L (3.5-5.2); SODIUM 140 mEq/L (134-144)
--- NOTE | 2017-05-06 08:36 | SOAPPROG ---
SOAP Progress Note Assessment/Plan: Assessment: Plan: Subjective: vss, af pod 1 appy for ruptured appy, meckel's excised lungs clear, abd soft. c.o. pain effexor and gabapentin restarted. pt wants coronado left in , as she had a 1000 cc residual. plan: cont ertapenem, leave drain in place, leave coronado in. cautious diet. Objective: Vital Signs Temp Pulse Resp BP Pulse Ox 36.5 C 74 15 110/71 96 05/06/17 07:26 05/06/17 07:26 05/06/17 07:26 05/06/17 08:10 05/06/17 07:26 Laboratory Results 05/06/17 05:15 05/06/17 05:15 05/05/17 05/06/17 05/07/17 05:59 05:59 05:59 Intake Total 3080 Output Total 1700 500 Balance 1380 -500 ICD10 Worksheet Patient Problems: Problems Problem Status Onset Appendicitis Acute
[2017-05-06] MEDS: VENLAFAXINE XR 75 MG CAP PO SCH (09:47)
[2017-05-06] MEDS: GABAPENTIN 100 MG CAP PO SCH ×3 (09:48→22:15)
[2017-05-06] MEDS: ERTAPENEM 1 GM in NS 100 ML IV SCH (10:06)
[2017-05-06] MEDS: clonazePAM 1 MG TAB PO PRN (22:15)
[2017-05-07] MEDS: ACETAMINOPHEN 500 MG TAB PO SCH ×3 (02:46→19:39)
[2017-05-07] MEDS: HEPARIN 5,000 UNIT/0.5 ML SYR SC SCH ×3 (05:00→21:36)
[2017-05-07] MEDS: KETOROLAC 30 MG/1 ML SDV IVP SCH ×4 (05:01→23:43)
[2017-05-07 05:15] LABS: % IMMATURE GRANULYOCYTES 0.3 % (0.0-1.1); ABSOLUTE IMMATURE GRANULOCYTES 0.03 10^3/uL (0.00-0.10); ADD DIFF? NO; ADD MORPH? NO; ADD SCAN? NO; ATYPICAL LYMPHOCYTE FLAG 0 (0-99); FRAGMENT RBC FLAG 0 (0-99); HEMATOCRIT 32.3 % (38.0-47.0); LEFT SHIFT FLG 0 (0-99); LIPEMIA HEMOLYSIS FLAG 90 (0-99); MEAN CELL HEMOGLOBIN 32.9 pg (27.9-34.1); MEAN CELL HEMOGLOBIN CONCENTR. 34.1 g/dL (32.4-36.7); MEAN CELL VOLUME 96.7 fL (81.5-99.8); MEAN PLATELET VOLUME 10.2 fL (8.7-11.7); PLATELET CLUMPS FLAG 0 (0-99); PLATELET COUNT 203 10^3/uL (150-400); RED BLOOD CELL COUNT 3.34 10^6/uL (4.18-5.33); RED CELL DISTRIBUTION WIDTH 13.1 % (11.5-15.2)
[2017-05-07] MEDS: GABAPENTIN 100 MG CAP PO SCH (08:19)
[2017-05-07] MEDS: VENLAFAXINE XR 75 MG CAP PO SCH (08:19)
[2017-05-07] MEDS: clonazePAM 1 MG TAB PO PRN ×3 (08:20→23:43)
[2017-05-07] MEDS: ERTAPENEM 1 GM in NS 100 ML IV SCH (08:20)
[2017-05-07] MEDS ORDERED: DIAZEPAM 10 MG TAB PO PRN (09:52)
[2017-05-07] MEDS ORDERED: DIAZEPAM 5 MG TAB PO PRN (10:01)
--- NOTE | 2017-05-07 14:12 | SOAPPROG ---
SOAP Progress Note Assessment/Plan: POD#2 05/07/17 14:08 Assessment: Pain/anxiety continues to be an issue. Passing Flatus but no stool yet. MOHINDER out today. Will remove coronado today. Doing well from a surgical standpoint Plan: Optimize antianxiety approach/pain medication. Subjective: I'm anxious. The Klonopin really helped last night Objective: Vital Signs Temp Pulse Resp BP Pulse Ox 36.7 C 78 17 119/79 99 05/07/17 11:56 05/07/17 11:56 05/07/17 11:56 05/07/17 11:56 05/07/17 11:56 Laboratory Results 05/07/17 05:00 05/06/17 05:15 05/06/17 05/07/17 05/08/17 05:59 05:59 05:59 Intake Total 3080 3052 Output Total 1700 3445 Balance 1380 -393 - Time Spent With Patient Time Spent With Patient: 25 Physical Exam - Physical Exam General Appearance: WD/WN, alert, no apparent distress, anxiety Respiratory: chest non-tender, lungs clear, normal breath sounds Cardiac/Chest: regular rate, rhythm Abdomen: normal bowel sounds, non-tender, soft Pelvic Exam: deferred Rectal: deferred Back: Normal inspection Skin: normal color, warm/dry Extremities: normal range of motion, non-tender Neuro/Psych: no motor/sensory deficits, alert, oriented x 3 ICD10 Worksheet Patient Problems: Problems Problem Status Onset Appendicitis Acute
[2017-05-07] MEDS ORDERED: MAGNESIUM CITRATE 300 ML BOTTLE PO PRN (14:13)
[2017-05-07] MEDS: GABAPENTIN 300 MG CAP PO SCH ×2 (15:33→21:36)
[2017-05-07] MEDS: busPIRone 15 MG TAB PO SCH ×2 (15:33→21:35)
[2017-05-07] MEDS: oxyCODONE IR 5 MG TAB PO PRN ×3 (15:42→23:43)
--- NOTE | 2017-05-07 16:30 | ASMTCMCOM ---
CM Note CM Note Notes: Pt admitted for appy. Pt is anxious per MD note but otherwise should DC with no needs. Date Signed: 05/07/2017 04:29 PM Electronically Signed By:Olive Nuñez LCSW
[2017-05-08] MEDS: oxyCODONE IR 5 MG TAB PO PRN ×4 (05:57→17:48)
[2017-05-08] MEDS: HEPARIN 5,000 UNIT/0.5 ML SYR SC SCH (05:57)
[2017-05-08] MEDS: KETOROLAC 30 MG/1 ML SDV IVP SCH ×4 (05:57→23:45)
[2017-05-08] MEDS: ACETAMINOPHEN 500 MG TAB PO SCH ×3 (05:58→21:04)
[2017-05-08] MEDS: VENLAFAXINE XR 75 MG CAP PO SCH (08:36)
[2017-05-08] MEDS: GABAPENTIN 300 MG CAP PO SCH ×3 (08:36→21:04)
[2017-05-08] MEDS: busPIRone 15 MG TAB PO SCH ×2 (08:37→21:05)
[2017-05-08] MEDS: clonazePAM 1 MG TAB PO PRN ×3 (08:37→23:45)
--- NOTE | 2017-05-08 11:14 | SOAPPROG ---
SOAP Progress Note Assessment/Plan: POD#2 05/07/17 14:08 Assessment: Pain/anxiety continues to be an issue. Passing Flatus but no stool yet. MOHINDER out today. Will remove coronado today. Doing well from a surgical standpoint Plan: Optimize antianxiety approach/pain medication. POD#3 05/08/17 11:11 Assessment: Pain / anxiety still an issue Walking/ passing stool (dark) Doing well from a surgical standpoint Plan: Check stool guaiac start topical antibiotic at drain site. re-assess for possible discharge late this afternoon. Subjective: " I walked too much yesterday I'm having dark/black stool My abdomen is too hard I'm using a walker because its hard to stand up" Objective: Vital Signs Temp Pulse Resp BP Pulse Ox 36.9 C 68 17 110/72 96 05/08/17 07:56 05/08/17 07:56 05/08/17 07:56 05/08/17 07:56 05/08/17 07:56 Laboratory Results 05/07/17 05:00 05/06/17 05:15 05/07/17 05/08/17 05/09/17 05:59 05:59 05:59 Intake Total 3052 1050 Output Total 3445 600 Balance -393 450 - Time Spent With Patient Time Spent With Patient: 25 - Pending Discharge Pending Discharge Within 24 Hours: Yes Pending Discharge Date: 05/09/17 Pending Discharge Time: 11:00 Physical Exam - Physical Exam General Appearance: WD/WN, alert, mild distress Respiratory: chest non-tender, lungs clear, normal breath sounds Cardiac/Chest: regular rate, rhythm Abdomen: normal bowel sounds, non-tender, soft Pelvic Exam: deferred Rectal: deferred Back: Normal inspection Skin: normal color, warm/dry Extremities: normal range of motion, non-tender Neuro/Psych: no motor/sensory deficits, alert, normal mood/affect, oriented x 3 ICD10 Worksheet Patient Problems: Problems Problem Status Onset Appendicitis Acute
[2017-05-08] MEDS: BACITRACIN/POLYMYXIN B SULFATE 28.3 GM TUBE TP SCH (14:50)
[2017-05-09] MEDS: BACITRACIN/POLYMYXIN B SULFATE 28.3 GM TUBE TP SCH ×2 (01:32→08:53)
[2017-05-09] MEDS: ACETAMINOPHEN 500 MG TAB PO SCH (03:52)
[2017-05-09 05:18] VITALS: TEMP 97.9; O2SAT 93
[2017-05-09] MEDS: oxyCODONE IR 5 MG TAB PO PRN ×2 (05:22→10:27)
[2017-05-09] MEDS: KETOROLAC 30 MG/1 ML SDV IVP SCH (05:22)
[2017-05-09 08:43] VITALS: BP 110/65; PULSE 83; RESP 18
[2017-05-09] MEDS: VENLAFAXINE XR 75 MG CAP PO SCH (08:50)
[2017-05-09] MEDS: busPIRone 15 MG TAB PO SCH (08:51)
[2017-05-09] MEDS: GABAPENTIN 300 MG CAP PO SCH (08:51)
[2017-05-09] MEDS: clonazePAM 1 MG TAB PO PRN (10:33)
--- NOTE | 2017-05-09 12:43 | SOAPPROG ---
SOAP Progress Note Assessment/Plan: POD#2 05/07/17 14:08 Assessment: Pain/anxiety continues to be an issue. Passing Flatus but no stool yet. MOHINDER out today. Will remove coronado today. Doing well from a surgical standpoint Plan: Optimize antianxiety approach/pain medication. POD#3 05/08/17 11:11 Assessment: Pain / anxiety still an issue Walking/ passing stool (dark) Doing well from a surgical standpoint Plan: Check stool guaiac start topical antibiotic at drain site. re-assess for possible discharge late this afternoon. POD#4 05/09/17 12:40 Assessment: Pain/anxiety now at an acceptable level Incisions clean dry Stool guaiac negative Plan: Set for discharge Subjective: I'm feeling better and want to go home Objective: Vital Signs Temp Pulse Resp BP Pulse Ox 36.6 C 83 18 110/65 93 05/09/17 08:43 05/09/17 08:43 05/09/17 08:43 05/09/17 08:43 05/09/17 08:43 Laboratory Results 05/07/17 05:00 05/06/17 05:15 05/08/17 05/09/17 05/10/17 05:59 05:59 05:59 Intake Total 1050 1950 Output Total 600 1200 Balance 450 750 - Pending Discharge Pending Discharge Within 24 Hours: Yes Pending Discharge Date: 05/10/17 Pending Discharge Time: 11:00 Physical Exam - Physical Exam General Appearance: WD/WN, alert Respiratory: chest non-tender, lungs clear, normal breath sounds Cardiac/Chest: regular rate, rhythm Abdomen: normal bowel sounds, non-tender, soft, other (incisions clean and dry) Pelvic Exam: deferred Rectal: deferred Back: Normal inspection Skin: normal color, warm/dry Extremities: normal range of motion, non-tender Neuro/Psych: no motor/sensory deficits, alert, normal mood/affect, oriented x 3 ICD10 Worksheet Patient Problems: Problems Problem Status Onset Anxiety Acute Appendicitis Acute Incisional hernia Acute Meckel's diverticulum Acute
--- NOTE | 2017-05-09 13:25 | ASDISCHSUM ---
Discharge Information Plan Status:Home with No Needs Medically Cleared to Leave:05/09/2017 Discharge Date:05/09/2017 CM D/C Disposition:Home, Routine, Self-Care ADT D/C Disposition:Home, Routine, Self-Care Projected Discharge Date:05/09/2017 02:00 PM Transportation at D/C:Family Discharge Delay Reason: Follow-Up Date:05/09/2017 02:00 PM Discharge Slot: Final Diagnosis:appendicitis Placement Information Patient Contact Information Contact Name:BABITA Relationship:Father Address:[address] City:[place] Alternate Phone: State/Zip Code:[place] [address] Email: Financial Information Financial Class:[facility] Primary Plan Desc:[facility] Primary Plan Number:[id number] Secondary Plan Desc: Secondary Plan Number: Assessment Information [facility] CM Progress Note CM Note CM Note Notes: Pt admitted for appy. Pt is anxious per MD note but otherwise should DC with no needs. Date Signed: 05/07/2017 04:29 PM Electronically Signed By:Olive Nuñez LCSW [facility] CM Progress Note CM Note CM Note Notes: Patient discharging home with no additional Case management needs at this time. Patient will follow up with surgeon outpatient. Date Signed: 05/09/2017 01:24 PM Electronically Signed By:FRED Maloney Intervention Information Intervention Type:*Incorrect Registration Date of Service:05/05/2017 08:51 AM Patient Type:Inpatient Staff Member:CAMELIA Lazaro Susan Hours: Discipline: Severity: Comment:
--- NOTE | 2017-05-09 13:55 | GDS ---
[f rep st] DISCHARGE SUMMARY DISCHARGE DIAGNOSIS: 1. Acute focally ruptured appendicitis. 2. Meckel's diverticulum. 3. Incisional hernia. 4. Anxiety. PROCEDURES PERFORMED: Laparoscopic appendectomy with laparoscopic excision of Meckel's diverticulum and repair of incisional hernia. CONDITION ON DISCHARGE: Improved. HOSPITAL COURSE: Postoperative course was uncomplicated from a surgical standpoint. She had a great deal of anxiety which required addition of her home medications plus others. She is finally, on pos toperative day #4, set for discharge. Her diet is unrestricted though I suggest she avoid constipati ng foods such as bananas, rice, applesauce, and cheese. Her diet texture is regular. MEDICATIONS AT DISCHARGE: Include Tylenol 1000 mg p.o. every 8 hours. She will take oxycodone IR 5 mg p.o. every 4 hours as needed for pain. She will also take Motrin 200 mg every 6 hours as needed f or mild pain. To treat her anxiety, she is on BuSpar 15 mg p.o. b.i.d., Klonopin 1 mg p.o. t.i.d. S he will continue her home medications of Neurontin 300 mg t.i.d., trazodone 50 mg p.o. q.h.s., Venlaf axine XR 225 mg daily and her herbal supplements. DISCHARGE INSTRUCTIONS: For 3 weeks she is to lift less than 10 pounds. She is to keep her Steri-St rips in place and shower only. She is take a multivitamin with zinc copper and C. She is to follow up with Dr. Toribio Bone or his colleagues in about 10 days. The patient understood the planned procedure, and wished to proceed as outlined. /[id number]/MODL
== END 2017-05-09 13:56 | disposition home or self-care (01) | DRG 331 ==
LOC: OBSVTOIN 19:43 → F1N 20:23
PROVIDERS: ADMIT Surgery; ATTEND Surgery
PROC: 0WQF0ZZ Repair Abdominal Wall, Open Approach (ICD-10-PCS; principal; 2017-05-05 17:15)
PROC: 0DTJ4ZZ Resection of Appendix, Percutaneous Endoscopic Approach (ICD-10-PCS; principal; 2017-05-05 17:15)
PROC: 0DBB0ZZ Excision of Ileum, Open Approach (ICD-10-PCS; principal; 2017-05-05 17:15)
DX: K35.3 Acute appendicitis with localized peritonitis (principal); Q43.0 Meckel's diverticulum (displaced) (hypertrophic); K43.2 Incisional hernia without obstruction or gangrene; F41.8 Other specified anxiety disorders; S70.11XA Contusion of right thigh, initial encounter; S70.12XA Contusion of left thigh, initial encounter; V47.5XXA Car driver injured in collision with fixed or stationary object in traffic accident, initial encounter; Y92.410 Unspecified street and highway as the place of occurrence of the external cause; J32.9 Chronic sinusitis, unspecified; Z87.891 Personal history of nicotine dependence; Z90.49 Acquired absence of other specified parts of digestive tract
CPT/HCPCS: 96365; J1100; J1335; J1885; J2001; J2250; J2405; J2704; J3010; Q9967

== ENCOUNTER 2017-07-12 17:10 | Emergency (ER) | payer OTHER ==
--- NOTE | 2017-07-12 17:13 | EDPHY ---
H & P - Personal History Tetanus Vaccine Date: 2009 - Medical/Surgical History Hx Asthma: No Hx Chronic Respiratory Disease: No Hx Diabetes: No Hx Cardiac Disease: No Hx Renal Disease: No Hx Cirrhosis: No Hx Alcoholism: No Hx HIV/AIDS: No Hx Splenectomy or Spleen Trauma: No Other PMH: anxiety/panic attacks/depression. galbladder removed, migraines - Social History Smoking Status: Never smoked HPI/ROS: CHIEF COMPLAINT: Combative HISTORY OF PRESENT ILLNESS: The patient is a 27 y/o female with a history of depression and anxiety who arrives via EMS in PD custody in 4-pt restraints with chemical sedation after she became combative at work. Coworkers called 911 because she was acting erratically. No history of trauma by bystanders to EMS. When PD arrived she became combative and remained combative throughout transport requiring 5mg IM Versed from EMS. She admitted to alcohol use to EMS. She is screaming on assessment and unable/unwilling to contribute to history. Past records show admission to [facility] in February 2017 for depression and suicidal ideation. REVIEW OF SYSTEMS: Unable to obtain due to presentation. (Puja Franklin) - Social History Additional Social History: PMH includes: 1. Anxiety 2. Depression with prior SI and admission to [facility] Feb 2017 (Puja Franklin) - Physical Exam Exam: General Appearance: Very agitated and uncooperative Eyes: No apparent trauma ENT, Mouth: Ecchymosis above left eye, Mucous membranes moist Neck: Normal inspection Respiratory: No respiratory distress, unable to auscultate due to agitation Cardiovascular: Regular tachycardia Gastrointestinal: Abdomen is soft Neurological: Alert, strong throughout Skin: Warm and dry Extremities: No apparent trauma or deformity Psychiatric: Violent, combative (Puja Franklin) Constitutional: Initial Vital Signs Temperature (C) 37 C 07/12/17 17:31 Heart Rate 160 H 07/12/17 17:31 Respiratory Rate 20 07/12/17 17:31 Blood Pressure 136/89 H 07/12/17 17:31 O2 Sat (%) 98 07/12/17 17:31 O2 Delivery Mode Room Air Allergies/Adverse Reactions: hydromorphone HCl [From Dilaudid] Allergy (Intermediate, Verified 05/07/17 17:45 ) Anxiety adhesive Allergy (Mild, Verified 05/07/17 17:45) Rash hydrocodone [Hydrocodone] Allergy (Verified 02/22/17 21:58) Vomiting silver [From Tegaderm AG Mesh] Allergy (Verified 06/30/12 11:34) Rash Home Medications: Medication Instructions Recorded Acetaminophen [Tylenol ES 500 mg 1,000 mg PO Q8H tab 05/09/17 (*)] Bacitracin/Polymyxin B Sulfate 1 brice TP TID oint 05/09/17 [Polysporin oint (*)] Gabapentin [Neurontin 300 MG (*)] 300 mg PO TID #45 cap 05/09/17 Herbals/Supplements -Info Only 1 ea PO DAILY #50 05/09/17 Ibuprofen [Motrin (*)] 200 mg PO Q6H PRN #30 tab 05/09/17 Venlafaxine Xr [Effexor Xr 75MG 225 mg PO DAILY #15 cap 05/09/17 (*)] busPIRone [Buspar (*)] 15 mg PO BID #30 tab 05/09/17 clonazePAM [klonoPIN (*)] 1 mg PO TID PRN #15 tab 05/09/17 oxyCODONE IR [Oxycodone Ir (*)] 5 mg PO Q4HRS PRN #30 tab 05/09/17 traZODone [traZODone 150MG (*)] 150 mg PO HS #15 tab 05/09/17 Medical Decision Making ED Course/Re-evaluation: This is a 27 y/o female with a history of anxiety, depression, and suicidal ideation with prior admission to [facility] last February who presents via EMS combative, violent, and screaming after 5mg IM Versed en route. She received 5mg IM Haldol upon arrival here and 4-pt restraints maintained. She is unable to participate in history or exam. Likely secondary to alcohol intoxication, doubt CHI as etiology, but has a forehead contusion, will reassess. Plan for sedation, IV, labs including EtOH level and drug screen. 1736: Patient is fighting out of soft restraints and actively trying to bite, kick, and grab staff. Additional 5mg IM Haldol administered and hard restraints applied by security. 1738: Spoke with patient's mother via phone handed to me by PD officer. She tells me patient takes Trazodone and has had similar combative episodes in the past triggered by alcohol use. 1840: Pt sleeping and calm, restraints removed. Etoh 324. 1999: Reassessed patient. Awake, calm, and somewhat cooperative now. She has ecchymosis to her left periorbital area that she attributes to playing with a cat a few days ago. Denies FLORENTINO. She remembers going to work and drinking alcohol around 17:00, which she says was after work, but can't tell me what happened after that or explain her behavior here. She says she feels completely normal right now and states she remembers coming into the ED "feeling a little under the weather" and "not feeling myself." She is unwilling to discuss her behavior while here. Denies suicidal ideation. She will be discharged with standard alcohol intoxication care and follow up instructions once she is able to walk with a stable gait. Signed over to Dr. Bates at shift change. (Puja Franklin) Differential Diagnosis: Altered mental status including but not limited to hypoglycemia, infectious process, electrolyte abnormality, head injury and intoxicants. (Puja Franklin) - Data Points Laboratory Results: Laboratory Results 07/12/17 17:53 07/12/17 17:53 Medications Given: Discontinued Medications Haloperidol Lactate (Haldol Injection) 5 mg IM EDNOW ONE Stop: 07/12/17 17:15 Last Admin: 07/12/17 17:29 Dose: 5 mg Haloperidol Lactate (Haldol Injection) 5 mg IM EDNOW ONE Stop: 07/12/17 17:59 Last Admin: 07/12/17 17:59 Dose: 5 mg Departure - Departure Disposition: Home, Routine, Self-Care Clinical Impression: Combative behavior Alcoholic intoxication Qualifiers: Complication of substance-induced condition: with delirium Qualified Code(s): F10.921 - Alcohol use, unspecified with intoxication delirium Condition: Good Instructions: Alcohol Intoxication (ED) Additional Instructions: Avoid abuse of alcohol. Follow up with your primary care provider for unimproved symptoms. Return to the ED for worsening of condition. Referrals: Amanda Collins MD [Medical Doctor] - As per Instructions Report Scribed for: Puja Franklin Report Scribed by: Ashlie Barron Date of Report: 07/12/17 Time of Report: 17:15 Physician Review and Approval Statement: 07/12/17 17:15 Portions of this note were transcribed by a medical center representative. I personally performed a history, physical exam, medical decision making, and confirmed accuracy of information the transcribed note. (Puja Franklin)
[2017-07-12] MEDS ORDERED: HALOPERIDOL LACT 5 MG/ML INJ ONE (17:14)
[2017-07-12] MEDS ORDERED: HALOPERIDOL LACT 5 MG/ML INJ IM ONE ×2 (17:14→17:58)
[2017-07-12 17:44] VITALS: TEMP 98.6
[2017-07-12 18:02] LABS: PLATELET COUNT 323 10^3/uL (150-400)
[2017-07-12 22:00] VITALS: BP 120/71; PULSE 110; RESP 18; O2SAT 95
== END 2017-07-12 21:55 | disposition home or self-care (01) ==
LOC: EDUNIT#
DX: F91.9 Conduct disorder, unspecified (principal); F10.921 Alcohol use, unspecified with intoxication delirium
CPT/HCPCS: G0480; J1630

== ENCOUNTER 2017-11-13 12:46 | Emergency (ER) | payer OTHER ==
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
[2017-11-13 14:08] VITALS: BP 135/93
== END 2017-11-13 14:19 | disposition home or self-care (01) ==
LOC: EDUNIT#
DX: F10.920 Alcohol use, unspecified with intoxication, uncomplicated (principal)